=== PATIENT | female | born 1945 | race Two or more races ===

== ENCOUNTER 2022-04-01 06:24 | Day surgery (SDC) | payer OTHER | END 2022-04-01 11:25 | disposition home or self-care (01) | LOC: AMB-ENDOS 06:24 → CIR.AMB 13:45 | PROVIDERS: ATTEND Colon & Rectal Surgery | DX: Z87.19 Personal history of other diseases of the digestive system (principal); R19.5 Other fecal abnormalities; K57.90 Diverticulosis of intestine, part unspecified, without perforation or abscess without bleeding; K64.8 Other hemorrhoids; K60.4 Rectal fistula; K59.00 Constipation, unspecified; E03.9 Hypothyroidism, unspecified; I10 Essential (primary) hypertension; Z91.013 Allergy to seafood ==

== ENCOUNTER 2022-06-08 09:27 | Outpatient (CLI) | payer OTHER | END 2022-06-08 10:15 | disposition home or self-care (01) | LOC: RX STUDY 09:27 | PROVIDERS: ATTEND Colon & Rectal Surgery | DX: N82.3 Fistula of vagina to large intestine (principal) ==

== ENCOUNTER 2023-02-25 11:15 | Inpatient (IN) | payer OTHER ==
[~2023-02-25] VITALS: Ht 152.4 cm; Wt 58.1 kg
[2023-02-25] MEDS ORDERED: SYNTHROID50 MCG PO (15:35)
[2023-02-25] MEDS ORDERED: LOSARTAN POTASS50 MG PO (15:35)
[2023-02-25] MEDS ORDERED: OMEPRAZOLE MAGN20 MG PO (15:36)
[2023-02-25] MEDS ORDERED: ZOCOR20 MG PO (15:36)
[2023-03-02 17:31] LABS: HEMATOCRIT 33.9 % (36.0-45.00); HEMOGLOBIN 11.6 g/dL (12.0-15.00); MEAN CORPUSCULAR HEMOGLOBIN 31.7 pg (27.00-32.0); MEAN CORPUSCULAR HGB CONC 34.1 g/dl (32.0-36.0); PLATELET COUNT 241 K/uL (150-450); RED BLOOD COUNT 3.64 M/uL (4.00-6.00); RED CELL DISTRIBUTION WIDTH 13.6 % (11.5-14.5)
[2023-03-03 08:20] LABS: HEMATOCRIT 30.5 % (36.0-45.00); HEMOGLOBIN 10.8 g/dL (12.0-15.00); MEAN CELL VOLUME 91.9 fL (80.00-100.00); MEAN CORPUSCULAR HEMOGLOBIN 32.5 pg (27.00-32.0); MEAN CORPUSCULAR HGB CONC 35.4 g/dl (32.0-36.0); PLATELET COUNT 183 K/uL (150-450); RED BLOOD COUNT 3.32 M/uL (4.00-6.00)
[2023-03-03 08:38] LABS: ALBUMIN 2.8 gm/dL (3.4-5.0); CALCIUM 8.2 mg/dL (8.5-10.1); CREATININE SERUM 0.49 mg/dL (0.55-1.02); GFR 122.14; MAGNESIUM 2.1 mg/dL (1.8-2.4); PHOSPHOROUS 3.8 mg/dL (2.5-4.9); POTASSIUM 3.29 mEq/L (3.5-5.1)
[2023-03-04 08:38] LABS: HEMATOCRIT 30.9 % (36.0-45.00); HEMOGLOBIN 10.7 g/dL (12.0-15.00); MEAN CELL VOLUME 93.7 fL (80.00-100.00); MEAN CORPUSCULAR HEMOGLOBIN 32.5 pg (27.00-32.0); MEAN CORPUSCULAR HGB CONC 34.7 g/dl (32.0-36.0); PLATELET COUNT 187 K/uL (150-450); RED BLOOD COUNT 3.29 M/uL (4.00-6.00); RED CELL DISTRIBUTION WIDTH 13.9 % (11.5-14.5)
[2023-03-04 08:56] LABS: CALCIUM 8.6 mg/dL (8.5-10.1); CREATININE SERUM 0.84 mg/dL (0.55-1.02); GFR 65.57; PHOSPHOROUS 2.7 mg/dL (2.5-4.9); POTASSIUM 3.36 mEq/L (3.5-5.1)
[2023-03-04] MEDS ORDERED: OMEPRAZOLE20 MG (13:21)
[2023-03-04] MEDS ORDERED: LOSARTAN POTASS25 MG (13:21)
[2023-03-04] MEDS ORDERED: FAMOTIDINE20 MG (13:21)
[2023-03-04] MEDS ORDERED: EZETIMIBE-SIMV1 EAC3 (13:21)
[2023-03-04] MEDS ORDERED: ALENDRONATE SOD70 MG (13:21)
== END 2023-03-05 11:48 | disposition home or self-care (01) | DRG 330 ==
LOC: SURG 03-02 07:00 → O/R 03-02 09:58 → SURH 03-02 09:58 → SURG 03-02 11:15 → SURH 03-02 16:58 → O/R 03-02 16:59 → SURH 03-02 19:16
PROVIDERS: Internal Medicine Geriatric Medicine; ADMIT Colon & Rectal Surgery; ATTEND Colon & Rectal Surgery
PROC: 0DN84ZZ Release Small Intestine, Percutaneous Endoscopic Approach (ICD-10-PCS; 2023-03-02)
PROC: 0JBB0ZZ Excision of Perineum Subcutaneous Tissue and Fascia, Open Approach (ICD-10-PCS; 2023-03-02)
PROC: 3E0F7SF Introduction of Other Gas into Respiratory Tract, Via Natural or Artificial Opening (ICD-10-PCS; 2023-03-02)
PROC: 0DQ84ZZ Repair Small Intestine, Percutaneous Endoscopic Approach (ICD-10-PCS; principal; 2023-03-02 07:00)
DX: N82.3 Fistula of vagina to large intestine (principal); K91.71 Accidental puncture and laceration of a digestive system organ or structure during a digestive system procedure; K92.1 Melena; K66.0 Peritoneal adhesions (postprocedural) (postinfection); D64.89 Other specified anemias; E03.9 Hypothyroidism, unspecified; I10 Essential (primary) hypertension

== ENCOUNTER 2023-03-08 19:28 | Inpatient (IN) | payer OTHER ==
[~2023-03-08] VITALS: Ht 152.4 cm; Wt 0.5 kg
[~2023-03-08 19:28] MED LIST: ALENDRONATE SOD70 MG; EZETIMIBE-SIMV1 EAC3; FAMOTIDINE20 MG; LOSARTAN POTASS25 MG; LOSARTAN POTASS50 MG PO; OMEPRAZOLE MAGN20 MG PO; OMEPRAZOLE20 MG; SYNTHROID50 MCG PO; ZOCOR20 MG PO
[2023-03-08 21:32] LABS: HEMATOCRIT 30.5 % (36.0-45.00); HEMOGLOBIN 10.3 g/dL (12.0-15.00); MEAN CELL VOLUME 92.6 fL (80.00-100.00); MEAN CORPUSCULAR HEMOGLOBIN 31.2 pg (27.00-32.0); MEAN CORPUSCULAR HGB CONC 33.7 g/dl (32.0-36.0); PLATELET COUNT 268 K/uL (150-450); RED BLOOD COUNT 3.29 M/uL (4.00-6.00); RED CELL DISTRIBUTION WIDTH 14.2 % (11.5-14.5)
[2023-03-08 21:58] LABS: PH,URINE 5.5 (5.0-8.0); URINE APPEARANCE Cloudy; URINE BILIRRUBIN Negative (NEGATIVE); URINE BLOOD Moderate; URINE COLOR Dark Yellow; URINE GLUCOSE Negative (NEGATIVE); URINE LEUKOCYTE Moderate; URINE NITRATE Negative
[2023-03-08 22:02] LABS: URINE BACTERIA 653.9 uL (0.0-1933); URINE EPITHELIAL CELLS 34.6 uL (0.0-38.8); URINE RBC 63.5 uL (0.0-20.8); URINE WBC 434.1 uL (0.0-23.2)
[2023-03-08 22:13] LABS: URINE PROTEIN 100 (NEGATIVE)
[2023-03-08 22:21] LABS: BILIRUBIN TOTAL 1.34 mg/dL (0.3-1.2); CALCIUM 8.4 mg/dL (8.5-10.1); CREATININE SERUM 0.71 mg/dL (0.55-1.02); GFR 79.61; GLOBULINA 3.4 G/DL (2.4-3.5); POTASSIUM 3.06 mEq/L (3.5-5.1); TOTAL PROTEIN 5.4 gm/dL (6.4-8.2)
[2023-03-09 15:24] LABS: BLOOD UREA NITROGEN 9 mg/dL (7-18); BUN CREA RATIO 18 (7.0-25.0); CALCIUM 7.4 mg/dL (8.5-10.1); CARBON DIOXIDE 32 mEq/L (21-32); CHLORIDE 99 mmol/L (98-107); CREATININE SERUM 0.51 mg/dL (0.55-1.02); GFR 116.63; GLUCOSE FASTING 99 mg/dL (65-100); OSMOLALITY SERUM 274 MOSM/KG (275-295); SODIUM 138 mmol/L (136-145); TRIGLYCERIDES 77 mg/dL (0-150); VLDL 15 (0-39)
[2023-03-09 15:26] LABS: ANION GAP 9 (10.0-20.0); CHOL HDL RATIO 3.6 (0-5.0); CHOLESTEROL < 50 mg/dL (0-200); HDL 14 mg/dl (40-60); LDL 21 mg/dl (0-130); POTASSIUM 2.49 mEq/L (3.5-5.1)
[2023-03-10 05:32] LABS: ERYTHROCYTE SEDIMENTATION RATE 22 mm/hr
[2023-03-10 05:38] LABS: HEMATOCRIT 32.8 % (36.0-45.00); HEMOGLOBIN 11.1 g/dL (12.0-15.00); MEAN CELL VOLUME 92.9 fL (80.00-100.00); MEAN CORPUSCULAR HEMOGLOBIN 31.6 pg (27.00-32.0); PLATELET COUNT 229 K/uL (150-450); RED BLOOD COUNT 3.53 M/uL (4.00-6.00); RED CELL DISTRIBUTION WIDTH 14.4 % (11.5-14.5)
[2023-03-10 06:58] LABS: ALBUMIN 1.3 gm/dL (3.4-5.0); BILIRUBIN TOTAL 0.79 mg/dL (0.3-1.2); C-REACTIVE PROTEIN 22.2 MG/DL (0.00-0.29); CREATININE SERUM 0.82 mg/dL (0.55-1.02); GFR 67.42; GLOBULINA 2.5 G/DL (2.4-3.5); MAGNESIUM 2.2 mg/dL (1.8-2.4); PHOSPHOROUS 2.8 mg/dL (2.5-4.9); POTASSIUM 3.17 mEq/L (3.5-5.1); TOTAL PROTEIN 3.8 gm/dL (6.4-8.2)
[2023-03-10 11:33] LABS: T4 TOTAL 4.04 UG/DL (4.8-13.9); TSH 0.369 uIU/mL (0.358-3.74)
[2023-03-11 08:29] LABS: HEMATOCRIT 30.6 % (36.0-45.00); HEMOGLOBIN 10.5 g/dL (12.0-15.00); MEAN CELL VOLUME 91.1 fL (80.00-100.00); MEAN CORPUSCULAR HEMOGLOBIN 31.2 pg (27.00-32.0); MEAN CORPUSCULAR HGB CONC 34.2 g/dl (32.0-36.0); PLATELET COUNT 184 K/uL (150-450); RED BLOOD COUNT 3.35 M/uL (4.00-6.00); RED CELL DISTRIBUTION WIDTH 14.4 % (11.5-14.5)
[2023-03-11 08:39] LABS: CALCIUM 7.5 mg/dL (8.5-10.1); CREATININE SERUM 0.61 mg/dL (0.55-1.02); GFR 94.86; MAGNESIUM 2.5 mg/dL (1.8-2.4); PHOSPHOROUS 2.2 mg/dL (2.5-4.9); POTASSIUM 3.14 mEq/L (3.5-5.1)
[2023-03-13 08:04] LABS: ALBUMIN 1.1 gm/dL (3.4-5.0); BILIRUBIN TOTAL 0.44 mg/dL (0.3-1.2); CALCIUM 7.2 mg/dL (8.5-10.1); CREATININE SERUM 0.67 mg/dL (0.55-1.02); GFR 85.12; GLOBULINA 2.9 G/DL (2.4-3.5); MAGNESIUM 2.7 mg/dL (1.8-2.4); PHOSPHOROUS 2.8 mg/dL (2.5-4.9)
[2023-03-13 08:22] LABS: HEMATOCRIT 28.2 % (36.0-45.00); HEMOGLOBIN 9.6 g/dL (12.0-15.00); MEAN CELL VOLUME 91.6 fL (80.00-100.00); MEAN CORPUSCULAR HGB CONC 33.9 g/dl (32.0-36.0); PLATELET COUNT 187 K/uL (150-450); RED BLOOD COUNT 3.08 M/uL (4.00-6.00); RED CELL DISTRIBUTION WIDTH 14.8 % (11.5-14.5)
[2023-03-13 10:01] LABS: C-REACTIVE PROTEIN 18.2 MG/DL (0.00-0.29)
[2023-03-13 10:03] LABS: POTASSIUM 2.96 mEq/L (3.5-5.1)
[2023-03-14 08:20] LABS: CALCIUM 7.7 mg/dL (8.5-10.1); CREATININE SERUM 0.61 mg/dL (0.55-1.02); GFR 94.86; POTASSIUM 3.28 mEq/L (3.5-5.1)
[2023-03-15 06:43] LABS: INR 1.09; PARTIAL THROMBOPLASTIN TIME 26.4 SECONDS (22.0-34.0); PROTHROMBIN TIME 11.4 SECONDS (9.0-11.5)
[2023-03-15 07:23] LABS: ALBUMIN 1.1 gm/dL (3.4-5.0); ALKALINE PHOSPHATASE 52 U/L (50-136); ALT/SGPT 20 U/L (12-78); AST/SGOT 45 U/L (15-37); BILIRUBIN TOTAL 0.39 mg/dL (0.3-1.2); BILIRUBIN,CONJUGATED 0.15 mg/dL (0.0-0.2); BILIRUBIN,UNCONJUGATED 0.24 mg/dL (0.0-0.6); BLOOD UREA NITROGEN 23 mg/dL (7-18); BUN CREA RATIO 42 (7.0-25.0); CARBON DIOXIDE 33 mEq/L (21-32); CHLORIDE 113 mmol/L (98-107); CREATININE SERUM 0.55 mg/dL (0.55-1.02); GLOBULINA 2.8 G/DL (2.4-3.5); GLUCOSE FASTING 108 mg/dL (65-100); HDL 20 mg/dl (40-60); POTASSIUM 3.21 mEq/L (3.5-5.1); TOTAL PROTEIN 3.9 gm/dL (6.4-8.2); TRIGLYCERIDES 62 mg/dL (0-150); VLDL 12 (0-39)
[2023-03-15 07:37] LABS: HEMATOCRIT 25.1 % (36.0-45.00); MEAN CELL VOLUME 92.4 fL (80.00-100.00); MEAN CORPUSCULAR HEMOGLOBIN 31.7 pg (27.00-32.0); MEAN CORPUSCULAR HGB CONC 34.3 g/dl (32.0-36.0); PLATELET COUNT 199 K/uL (150-450); RED BLOOD COUNT 2.71 M/uL (4.00-6.00); RED CELL DISTRIBUTION WIDTH 14.6 % (11.5-14.5)
[2023-03-15 07:40] LABS: HEMOGLOBIN 8.6 g/dL (12.0-15.00)
[2023-03-15 08:14] LABS: ANION GAP 8 (10.0-20.0); CALCIUM 7.2 mg/dL (8.5-10.1); CHOL HDL RATIO 2.5 (0-5.0); CHOLESTEROL < 50 mg/dL (0-200); LDL 18 mg/dl (0-130); OSMOLALITY SERUM 304 MOSM/KG (275-295); SODIUM 151 mmol/L (136-145)
[2023-03-15 10:06] LABS: UREA CLEARANCE 36.1 ML/MIN
[2023-03-16 07:15] LABS: HEMATOCRIT 27.9 % (36.0-45.00); HEMOGLOBIN 9.4 g/dL (12.0-15.00); MEAN CORPUSCULAR HEMOGLOBIN 31.2 pg (27.00-32.0); MEAN CORPUSCULAR HGB CONC 33.5 g/dl (32.0-36.0); PLATELET COUNT 202 K/uL (150-450); RED CELL DISTRIBUTION WIDTH 14.8 % (11.5-14.5)
[2023-03-16 07:49] LABS: CALCIUM 7.5 mg/dL (8.5-10.1); CREATININE SERUM 0.62 mg/dL (0.55-1.02); GFR 93.09; POTASSIUM 3.1 mEq/L (3.5-5.1)
[2023-03-17 08:30] LABS: HEMATOCRIT 25.6 % (36.0-45.00); MEAN CELL VOLUME 93.6 fL (80.00-100.00); MEAN CORPUSCULAR HGB CONC 32.9 g/dl (32.0-36.0); PLATELET COUNT 210 K/uL (150-450); RED BLOOD COUNT 2.74 M/uL (4.00-6.00); RED CELL DISTRIBUTION WIDTH 14.7 % (11.5-14.5)
[2023-03-17 08:51] LABS: ALBUMIN 2.4 gm/dL (3.4-5.0); CALCIUM 7.8 mg/dL (8.5-10.1); CREATININE SERUM 0.74 mg/dL (0.55-1.02); GFR 75.9; PHOSPHOROUS 3.3 mg/dL (2.5-4.9); POTASSIUM 3.09 mEq/L (3.5-5.1)
[2023-03-17 09:15] LABS: HEMOGLOBIN 8.4 g/dL (12.0-15.00); MEAN CORPUSCULAR HEMOGLOBIN 30.6 pg (27.00-32.0)
[2023-03-19 12:16] LABS: HEMATOCRIT 40.4 % (36.0-45.00); HEMOGLOBIN 13.2 g/dL (12.0-15.00); MEAN CELL VOLUME 87.7 fL (80.00-100.00); MEAN CORPUSCULAR HEMOGLOBIN 28.7 pg (27.00-32.0); MEAN CORPUSCULAR HGB CONC 32.7 g/dl (32.0-36.0); PLATELET COUNT 190 K/uL (150-450)
[2023-03-19 13:15] LABS: CALCIUM 7.8 mg/dL (8.5-10.1); CREATININE SERUM 0.66 mg/dL (0.55-1.02); GFR 86.61; MAGNESIUM 2.1 mg/dL (1.8-2.4); PHOSPHOROUS 2.7 mg/dL (2.5-4.9)
[2023-03-19 13:31] LABS: POTASSIUM 2.58 mEq/L (3.5-5.1)
[2023-03-20 10:43] LABS: HEMATOCRIT 38.5 % (36.0-45.00); MEAN CORPUSCULAR HEMOGLOBIN 29.6 pg (27.00-32.0); MEAN CORPUSCULAR HGB CONC 33.7 g/dl (32.0-36.0); PLATELET COUNT 224 K/uL (150-450); RED BLOOD COUNT 4.37 M/uL (4.00-6.00); RED CELL DISTRIBUTION WIDTH 17.8 % (11.5-14.5)
[2023-03-20 10:57] LABS: CALCIUM 7.9 mg/dL (8.5-10.1); CREATININE SERUM 0.68 mg/dL (0.55-1.02); GFR 83.68; MAGNESIUM 2.3 mg/dL (1.8-2.4); PHOSPHOROUS 2.6 mg/dL (2.5-4.9); POTASSIUM 3.03 mEq/L (3.5-5.1)
[2023-03-22 08:00] LABS: HEMATOCRIT 31.3 % (36.0-45.00); HEMOGLOBIN 10.6 g/dL (12.0-15.00); MEAN CELL VOLUME 88.2 fL (80.00-100.00); MEAN CORPUSCULAR HEMOGLOBIN 29.8 pg (27.00-32.0); MEAN CORPUSCULAR HGB CONC 33.8 g/dl (32.0-36.0); PLATELET COUNT 228 K/uL (150-450); RED BLOOD COUNT 3.55 M/uL (4.00-6.00); RED CELL DISTRIBUTION WIDTH 17.4 % (11.5-14.5)
[2023-03-22 08:30] LABS: INR 1.1; PARTIAL THROMBOPLASTIN TIME 31.4 SECONDS (22.0-34.0); PROTHROMBIN TIME 11.5 SECONDS (9.0-11.5)
[2023-03-22 08:43] LABS: ALBUMIN 1.4 gm/dL (3.4-5.0); BILIRUBIN TOTAL 0.63 mg/dL (0.3-1.2); BILIRUBIN,CONJUGATED 0.29 mg/dL (0.0-0.2); BILIRUBIN,UNCONJUGATED 0.34 mg/dL (0.0-0.6); CALCIUM 7.6 mg/dL (8.5-10.1); CREATININE SERUM 0.88 mg/dL (0.55-1.02); GFR 62.14; GLOBULINA 2.4 G/DL (2.4-3.5); MAGNESIUM 2.4 mg/dL (1.8-2.4); POTASSIUM 3.87 mEq/L (3.5-5.1); TOTAL PROTEIN 3.8 gm/dL (6.4-8.2)
[2023-03-22 08:44] LABS: C-REACTIVE PROTEIN 15.3 MG/DL (0.00-0.29)
[2023-03-23 08:41] LABS: T4 TOTAL 3.5 UG/DL (4.8-13.9); TSH 4.3 uIU/mL (0.358-3.74)
[2023-03-24 07:50] LABS: HEMATOCRIT 32.8 % (36.0-45.00); HEMOGLOBIN 10.9 g/dL (12.0-15.00); MEAN CELL VOLUME 88.2 fL (80.00-100.00); MEAN CORPUSCULAR HEMOGLOBIN 29.4 pg (27.00-32.0); MEAN CORPUSCULAR HGB CONC 33.3 g/dl (32.0-36.0); PLATELET COUNT 249 K/uL (150-450); RED BLOOD COUNT 3.72 M/uL (4.00-6.00); RED CELL DISTRIBUTION WIDTH 17.1 % (11.5-14.5)
[2023-03-24 09:50] LABS: ALBUMIN 1.4 gm/dL (3.4-5.0); BILIRUBIN TOTAL 0.42 mg/dL (0.3-1.2); CALCIUM 7.9 mg/dL (8.5-10.1); CREATININE SERUM 0.79 mg/dL (0.55-1.02); GFR 70.38; GLOBULINA 2.7 G/DL (2.4-3.5); MAGNESIUM 2.3 mg/dL (1.8-2.4); PHOSPHOROUS 3.8 mg/dL (2.5-4.9); POTASSIUM 3.13 mEq/L (3.5-5.1); TOTAL PROTEIN 4.1 gm/dL (6.4-8.2)
[2023-03-25 13:54] LABS: ABG PH 7.478 (7.35-7.45); ABG PO2 99.9 mmHg (80-100); ABG pCO2 43.1 mmHg (35-45); BASE EXCESS 6.9 mmol/l; BICARBONATE 31.2 mmol/l (23-25); SaO2 98.3 %; Tco2 32.6 mmol/l
[2023-03-25 13:55] LABS: o2 32 %
[2023-03-25 13:56] LABS: allen test SATISFACTORY; puncture site RADIAL RIGHT
[2023-03-26 07:32] LABS: HEMATOCRIT 31.5 % (36.0-45.00); HEMOGLOBIN 10.6 g/dL (12.0-15.00); MEAN CELL VOLUME 87.8 fL (80.00-100.00); MEAN CORPUSCULAR HEMOGLOBIN 29.5 pg (27.00-32.0); MEAN CORPUSCULAR HGB CONC 33.6 g/dl (32.0-36.0); PLATELET COUNT 230 K/uL (150-450); RED BLOOD COUNT 3.58 M/uL (4.00-6.00); RED CELL DISTRIBUTION WIDTH 16.8 % (11.5-14.5)
[2023-03-26 08:15] LABS: CALCIUM 7.9 mg/dL (8.5-10.1); CREATININE SERUM 0.78 mg/dL (0.55-1.02); GFR 71.43; MAGNESIUM 2.3 mg/dL (1.8-2.4)
[2023-03-26 09:12] LABS: C-REACTIVE PROTEIN 8.04 MG/DL (0.00-0.29)
[2023-03-26 09:13] LABS: POTASSIUM 2.84 mEq/L (3.5-5.1)
[2023-03-28 08:44] LABS: CALCIUM 7.9 mg/dL (8.5-10.1); CREATININE SERUM 0.77 mg/dL (0.55-1.02); GFR 72.5
[2023-03-28 08:51] LABS: HEMATOCRIT 31.3 % (36.0-45.00); HEMOGLOBIN 10.6 g/dL (12.0-15.00); MEAN CORPUSCULAR HEMOGLOBIN 29.7 pg (27.00-32.0); MEAN CORPUSCULAR HGB CONC 33.8 g/dl (32.0-36.0); PLATELET COUNT 203 K/uL (150-450); RED BLOOD COUNT 3.56 M/uL (4.00-6.00); RED CELL DISTRIBUTION WIDTH 16.7 % (11.5-14.5)
[2023-03-28 09:36] LABS: POTASSIUM 2.76 mEq/L (3.5-5.1)
[2023-03-29 06:52] LABS: HEMATOCRIT 31.8 % (36.0-45.00); HEMOGLOBIN 10.8 g/dL (12.0-15.00); MEAN CELL VOLUME 89.2 fL (80.00-100.00); MEAN CORPUSCULAR HEMOGLOBIN 30.2 pg (27.00-32.0); MEAN CORPUSCULAR HGB CONC 33.8 g/dl (32.0-36.0); PLATELET COUNT 185 K/uL (150-450); RED BLOOD COUNT 3.57 M/uL (4.00-6.00); RED CELL DISTRIBUTION WIDTH 16.9 % (11.5-14.5)
[2023-03-29 07:25] LABS: INR 1.1; PARTIAL THROMBOPLASTIN TIME 29.3 SECONDS (22.0-34.0); PROTHROMBIN TIME 11.5 SECONDS (9.0-11.5)
[2023-03-29 07:43] LABS: ALBUMIN 1.4 gm/dL (3.4-5.0); BILIRUBIN TOTAL 0.39 mg/dL (0.3-1.2); BILIRUBIN,CONJUGATED 0.14 mg/dL (0.0-0.2); BILIRUBIN,UNCONJUGATED 0.25 mg/dL (0.0-0.6); CALCIUM 7.9 mg/dL (8.5-10.1); CHOL HDL RATIO 3.1 (0-5.0); CREATININE SERUM 0.87 mg/dL (0.55-1.02); GFR 62.97; GLOBULINA 2.8 G/DL (2.4-3.5); POTASSIUM 3.93 mEq/L (3.5-5.1); TOTAL PROTEIN 4.2 gm/dL (6.4-8.2)
[2023-03-29 11:05] LABS: UREA CLEARANCE 8.4 ML/MIN
[2023-03-30 15:05] LABS: URINE APPEARANCE Clear; URINE BILIRRUBIN Negative (NEGATIVE); URINE BLOOD Small; URINE COLOR Yellow; URINE GLUCOSE Negative (NEGATIVE); URINE LEUKOCYTE Negative; URINE NITRATE Negative; URINE PROTEIN Trace (NEGATIVE); URINE UROBILINOGEN 0.2 E.U./dl
[2023-03-30 15:08] LABS: URINE BACTERIA 20.1 uL (0.0-1933); URINE RBC 37.2 uL (0.0-20.8); URINE WBC 4.4 uL (0.0-23.2)
[2023-03-31 18:56] LABS: URINE APPEARANCE Clear; URINE BILIRRUBIN Negative (NEGATIVE); URINE BLOOD Small; URINE COLOR Yellow; URINE GLUCOSE Negative (NEGATIVE); URINE LEUKOCYTE Negative; URINE NITRATE Negative; URINE PROTEIN Trace (NEGATIVE); URINE UROBILINOGEN 0.2 E.U./dl
[2023-03-31 18:57] LABS: URINE BACTERIA 30.2 uL (0.0-1933); URINE RBC 40.2 uL (0.0-20.8); URINE WBC 5.4 uL (0.0-23.2)
[2023-03-31 19:00] LABS: URINE EPITHELIAL CELLS 1.3 uL (0.0-38.8)
[2023-04-01 06:43] LABS: HEMATOCRIT 30.8 % (36.0-45.00); HEMOGLOBIN 10.5 g/dL (12.0-15.00); MEAN CORPUSCULAR HEMOGLOBIN 29.9 pg (27.00-32.0); PLATELET COUNT 134 K/uL (150-450); RED CELL DISTRIBUTION WIDTH 16.7 % (11.5-14.5)
[2023-04-01 07:14] LABS: ALBUMIN 1.5 gm/dL (3.4-5.0); BILIRUBIN TOTAL 0.47 mg/dL (0.3-1.2); CALCIUM 7.7 mg/dL (8.5-10.1); CREATININE SERUM 0.74 mg/dL (0.55-1.02); GFR 75.9; GLOBULINA 2.7 G/DL (2.4-3.5); PHOSPHOROUS 3.5 mg/dL (2.5-4.9); POTASSIUM 3.69 mEq/L (3.5-5.1); TOTAL PROTEIN 4.2 gm/dL (6.4-8.2)
[2023-04-04 08:44] LABS: HEMATOCRIT 28.3 % (36.0-45.00); HEMOGLOBIN 9.8 g/dL (12.0-15.00); MEAN CORPUSCULAR HEMOGLOBIN 31.2 pg (27.00-32.0); MEAN CORPUSCULAR HGB CONC 34.7 g/dl (32.0-36.0); PLATELET COUNT 149 K/uL (150-450); RED BLOOD COUNT 3.15 M/uL (4.00-6.00); RED CELL DISTRIBUTION WIDTH 17.1 % (11.5-14.5)
[2023-04-04 09:04] LABS: CALCIUM 7.7 mg/dL (8.5-10.1); CREATININE SERUM 0.74 mg/dL (0.55-1.02); GFR 75.9; MAGNESIUM 1.8 mg/dL (1.8-2.4); PHOSPHOROUS 3.2 mg/dL (2.5-4.9); POTASSIUM 3.27 mEq/L (3.5-5.1)
[2023-04-04 09:15] LABS: C-REACTIVE PROTEIN 7.66 MG/DL (0.00-0.29)
[2023-04-05 07:56] LABS: HEMATOCRIT 27.4 % (36.0-45.00); HEMOGLOBIN 9.3 g/dL (12.0-15.00); MEAN CELL VOLUME 90.5 fL (80.00-100.00); MEAN CORPUSCULAR HEMOGLOBIN 30.9 pg (27.00-32.0); MEAN CORPUSCULAR HGB CONC 34.1 g/dl (32.0-36.0); PLATELET COUNT 153 K/uL (150-450); RED BLOOD COUNT 3.03 M/uL (4.00-6.00); RED CELL DISTRIBUTION WIDTH 16.9 % (11.5-14.5)
[2023-04-05 08:24] LABS: INR 1.12; PARTIAL THROMBOPLASTIN TIME 31.3 SECONDS (22.0-34.0); PROTHROMBIN TIME 11.7 SECONDS (9.0-11.5)
[2023-04-05 08:29] LABS: ALBUMIN 1.4 gm/dL (3.4-5.0); BILIRUBIN TOTAL 0.45 mg/dL (0.3-1.2); BILIRUBIN,CONJUGATED 0.13 mg/dL (0.0-0.2); BILIRUBIN,UNCONJUGATED 0.32 mg/dL (0.0-0.6); CALCIUM 7.5 mg/dL (8.5-10.1); CHOL HDL RATIO 4.3 (0-5.0); CREATININE SERUM 0.72 mg/dL (0.55-1.02); GFR 78.34; GLOBULINA 2.7 G/DL (2.4-3.5); MAGNESIUM 1.9 mg/dL (1.8-2.4); POTASSIUM 3.24 mEq/L (3.5-5.1); TOTAL PROTEIN 4.1 gm/dL (6.4-8.2)
[2023-04-05 10:30] LABS: UREA CLEARANCE 19.4 ML/MIN
[2023-04-06 09:39] LABS: ABG PH 7.481 (7.35-7.45); ABG PO2 70.4 mmHg (80-100); ABG pCO2 48.3 mmHg (35-45); BASE EXCESS 10.1 mmol/l
[2023-04-06 09:40] LABS: BICARBONATE 35.2 mmol/l (23-25); Tco2 36.7 mmol/l; allen test SATISFACTORY; o2 21 %; puncture site BRADIAL LEFT
[2023-04-06 09:41] LABS: SaO2 95.6 %
[2023-04-06 13:57] LABS: HEMATOCRIT 38.6 % (36.0-45.00); HEMOGLOBIN 13.3 g/dL (12.0-15.00); MEAN CELL VOLUME 88.2 fL (80.00-100.00); MEAN CORPUSCULAR HEMOGLOBIN 30.5 pg (27.00-32.0); MEAN CORPUSCULAR HGB CONC 34.6 g/dl (32.0-36.0); RED BLOOD COUNT 4.38 M/uL (4.00-6.00); RED CELL DISTRIBUTION WIDTH 16.2 % (11.5-14.5)
[2023-04-06 14:23] LABS: ALBUMIN 1.7 gm/dL (3.4-5.0); CREATININE SERUM 0.63 mg/dL (0.55-1.02); GFR 91.39; PHOSPHOROUS 3.4 mg/dL (2.5-4.9); PLATELET COUNT 155 K/uL (150-450); POTASSIUM 3.09 mEq/L (3.5-5.1)
[2023-04-06 14:25] LABS: CHOL HDL RATIO 4.9 (0-5.0)
[2023-04-07 07:39] LABS: HEMATOCRIT 35.3 % (36.0-45.00); HEMOGLOBIN 12.2 g/dL (12.0-15.00); MEAN CELL VOLUME 89.5 fL (80.00-100.00); MEAN CORPUSCULAR HGB CONC 34.7 g/dl (32.0-36.0); RED BLOOD COUNT 3.94 M/uL (4.00-6.00); RED CELL DISTRIBUTION WIDTH 16.1 % (11.5-14.5)
[2023-04-07 07:41] LABS: PLATELET COUNT 120 K/uL (150-450)
[2023-04-07 08:07] LABS: ALBUMIN 1.4 gm/dL (3.4-5.0); CALCIUM 7.5 mg/dL (8.5-10.1); CREATININE SERUM 0.83 mg/dL (0.55-1.02); GFR 66.48; MAGNESIUM 1.9 mg/dL (1.8-2.4); POTASSIUM 3.73 mEq/L (3.5-5.1)
[2023-04-08 07:36] LABS: HEMATOCRIT 28.2 % (36.0-45.00); HEMOGLOBIN 10.1 g/dL (12.0-15.00); MEAN CELL VOLUME 97.4 fL (80.00-100.00); MEAN CORPUSCULAR HEMOGLOBIN 34.7 pg (27.00-32.0); MEAN CORPUSCULAR HGB CONC 35.7 g/dl (32.0-36.0); RED CELL DISTRIBUTION WIDTH 16.1 % (11.5-14.5)
[2023-04-08 07:37] LABS: PLATELET COUNT 110 K/uL (150-450)
[2023-04-08 07:47] LABS: CALCIUM 7.2 mg/dL (8.5-10.1); CREATININE SERUM 0.69 mg/dL (0.55-1.02); GFR 82.28; MAGNESIUM 2.1 mg/dL (1.8-2.4); PHOSPHOROUS 3.4 mg/dL (2.5-4.9); POTASSIUM 3.47 mEq/L (3.5-5.1)
[2023-04-09 07:49] LABS: CALCIUM 7.2 mg/dL (8.5-10.1); CREATININE SERUM 0.69 mg/dL (0.55-1.02); GFR 82.28; MAGNESIUM 1.7 mg/dL (1.8-2.4); PHOSPHOROUS 2.8 mg/dL (2.5-4.9); POTASSIUM 4.25 mEq/L (3.5-5.1)
[2023-04-09 07:56] LABS: HEMATOCRIT 26.7 % (36.0-45.00); HEMOGLOBIN 9.7 g/dL (12.0-15.00); MEAN CELL VOLUME 100.7 fL (80.00-100.00); MEAN CORPUSCULAR HEMOGLOBIN 36.6 pg (27.00-32.0); MEAN CORPUSCULAR HGB CONC 36.3 g/dl (32.0-36.0); RED BLOOD COUNT 2.65 M/uL (4.00-6.00); RED CELL DISTRIBUTION WIDTH 16.4 % (11.5-14.5)
[2023-04-09 08:06] LABS: PLATELET COUNT 115 K/uL (150-450)
[2023-04-09 09:13] LABS: MANUAL PLATELET COUNT 128
[2023-04-09 16:53] LABS: PH,URINE 5.5 (5.0-8.0); URINE APPEARANCE Cloudy; URINE BILIRRUBIN Negative (NEGATIVE); URINE BLOOD Negative; URINE COLOR Yellow; URINE GLUCOSE Negative (NEGATIVE); URINE LEUKOCYTE Negative; URINE NITRATE Negative; URINE UROBILINOGEN 0.2 E.U./dl
[2023-04-09 16:55] LABS: URINE EPITHELIAL CELLS 31.3 uL (0.0-38.8); URINE RBC 21.5 uL (0.0-20.8)
[2023-04-09 16:56] LABS: URINE PROTEIN 100 (NEGATIVE)
[2023-04-11 09:46] LABS: HEMATOCRIT 23.9 % (36.0-45.00); HEMOGLOBIN 9.1 g/dL (12.0-15.00); MEAN CELL VOLUME 105.4 fL (80.00-100.00); MEAN CORPUSCULAR HEMOGLOBIN 40.1 pg (27.00-32.0); RED BLOOD COUNT 2.26 M/uL (4.00-6.00); RED CELL DISTRIBUTION WIDTH 16.4 % (11.5-14.5)
[2023-04-11 09:49] LABS: PLATELET COUNT 116 K/uL (150-450)
[2023-04-12 09:26] LABS: MEAN CELL VOLUME 102.2 fL (80.00-100.00); MEAN CORPUSCULAR HGB CONC 41.2 g/dl (32.0-36.0); PLATELET COUNT 162 K/uL (150-450); RED BLOOD COUNT 2.07 M/uL (4.00-6.00); RED CELL DISTRIBUTION WIDTH 16.3 % (11.5-14.5)
[2023-04-12 09:27] LABS: HEMATOCRIT 21.2 % (36.0-45.00)
[2023-04-12 09:28] LABS: HEMOGLOBIN 8.7 g/dL (12.0-15.00)
[2023-04-12 09:48] LABS: ALBUMIN 1.2 gm/dL (3.4-5.0); ALKALINE PHOSPHATASE 135 U/L (50-136); ALT/SGPT 6 U/L (12-78); ANION GAP 9 (10.0-20.0); AST/SGOT 19 U/L (15-37); BILIRUBIN TOTAL 0.39 mg/dL (0.3-1.2); BILIRUBIN,CONJUGATED 0.12 mg/dL (0.0-0.2); BILIRUBIN,UNCONJUGATED 0.27 mg/dL (0.0-0.6); BLOOD UREA NITROGEN 31 mg/dL (7-18); BUN CREA RATIO 48 (7.0-25.0); CALCIUM 7.1 mg/dL (8.5-10.1); CARBON DIOXIDE 29 mEq/L (21-32); CHLORIDE 105 mmol/L (98-107); CREATININE SERUM 0.64 mg/dL (0.55-1.02); GFR 89.74; GLOBULINA 2.8 G/DL (2.4-3.5); GLUCOSE FASTING 76 mg/dL (65-100); OSMOLALITY SERUM 283 MOSM/KG (275-295); SODIUM 139 mmol/L (136-145); TRIGLYCERIDES 146 mg/dL (0-150); VLDL 29 (0-39)
[2023-04-12 09:52] LABS: CHOL HDL RATIO 4.5 (0-5.0); LDL 10 mg/dl (0-130)
[2023-04-12 09:53] LABS: CHOLESTEROL < 50 mg/dL (0-200); HDL 11 mg/dl (40-60)
[2023-04-12 09:57] LABS: INR 1.14; PROTHROMBIN TIME 11.9 SECONDS (9.0-11.5)
[2023-04-12 09:58] LABS: PARTIAL THROMBOPLASTIN TIME 38.1 SECONDS (22.0-34.0)
[2023-04-13 11:44] LABS: HEMOGLOBIN 9.1 g/dL (12.0-15.00); MEAN CELL VOLUME 101.8 fL (80.00-100.00); MEAN CORPUSCULAR HEMOGLOBIN 40.8 pg (27.00-32.0); MEAN CORPUSCULAR HGB CONC 40.1 g/dl (32.0-36.0); PLATELET COUNT 188 K/uL (150-450); RED BLOOD COUNT 2.23 M/uL (4.00-6.00); RED CELL DISTRIBUTION WIDTH 16.4 % (11.5-14.5)
[2023-04-13 11:46] LABS: HEMATOCRIT 22.7 % (36.0-45.00)
[2023-04-13 12:22] LABS: CALCIUM 7.6 mg/dL (8.5-10.1); CREATININE SERUM 0.78 mg/dL (0.55-1.02); GFR 71.43; PHOSPHOROUS 3.3 mg/dL (2.5-4.9); POTASSIUM 3.87 mEq/L (3.5-5.1)
[2023-04-13 14:32] LABS: MAGNESIUM 1.9 mg/dL (1.8-2.4)
[2023-04-15 12:39] LABS: HEMATOCRIT 24.5 % (36.0-45.00); MEAN CELL VOLUME 91.1 fL (80.00-100.00); MEAN CORPUSCULAR HEMOGLOBIN 30.4 pg (27.00-32.0); MEAN CORPUSCULAR HGB CONC 33.6 g/dl (32.0-36.0); PLATELET COUNT 173 K/uL (150-450); RED BLOOD COUNT 2.69 M/uL (4.00-6.00)
[2023-04-15 12:40] LABS: HEMOGLOBIN 8.2 g/dL (12.0-15.00)
[2023-04-15 13:12] LABS: CALCIUM 7.5 mg/dL (8.5-10.1); CREATININE SERUM 1.46 mg/dL (0.55-1.02); GFR 34.65; MAGNESIUM 1.8 mg/dL (1.8-2.4); PHOSPHOROUS 4.5 mg/dL (2.5-4.9); POTASSIUM 4.03 mEq/L (3.5-5.1)
[2023-04-16 12:38] LABS: HEMATOCRIT 31.9 % (36.0-45.00); MEAN CELL VOLUME 88.3 fL (80.00-100.00); MEAN CORPUSCULAR HGB CONC 34.7 g/dl (32.0-36.0); PLATELET COUNT 183 K/uL (150-450); RED BLOOD COUNT 3.62 M/uL (4.00-6.00); RED CELL DISTRIBUTION WIDTH 17.3 % (11.5-14.5)
[2023-04-16 12:49] LABS: HEMOGLOBIN 11.1 g/dL (12.0-15.00); MEAN CORPUSCULAR HEMOGLOBIN 30.6 pg (27.00-32.0)
[2023-04-16 13:16] LABS: CALCIUM 7.5 mg/dL (8.5-10.1); CREATININE SERUM 1.56 mg/dL (0.55-1.02); GFR 32.1; MAGNESIUM 1.9 mg/dL (1.8-2.4); PHOSPHOROUS 5.2 mg/dL (2.5-4.9); POTASSIUM 3.94 mEq/L (3.5-5.1)
[2023-04-17 07:16] LABS: CALCIUM 7.4 mg/dL (8.5-10.1); CREATININE SERUM 1.27 mg/dL (0.55-1.02); GFR 40.7; MAGNESIUM 1.9 mg/dL (1.8-2.4); PHOSPHOROUS 5.1 mg/dL (2.5-4.9); POTASSIUM 3.79 mEq/L (3.5-5.1)
[2023-04-17 07:22] LABS: HEMATOCRIT 27.2 % (36.0-45.00); HEMOGLOBIN 10.6 g/dL (12.0-15.00); MEAN CELL VOLUME 97.4 fL (80.00-100.00); MEAN CORPUSCULAR HEMOGLOBIN 37.9 pg (27.00-32.0); MEAN CORPUSCULAR HGB CONC 38.9 g/dl (32.0-36.0); PLATELET COUNT 181 K/uL (150-450); RED CELL DISTRIBUTION WIDTH 17.1 % (11.5-14.5)
[2023-04-20 07:20] LABS: ALBUMIN 1.3 gm/dL (3.4-5.0); BILIRUBIN TOTAL 0.4 mg/dL (0.3-1.2); CALCIUM 7.2 mg/dL (8.5-10.1); CREATININE SERUM 0.65 mg/dL (0.55-1.02); GFR 88.15; GLOBULINA 2.9 G/DL (2.4-3.5); TOTAL PROTEIN 4.2 gm/dL (6.4-8.2)
[2023-04-20 08:07] LABS: C-REACTIVE PROTEIN 2.49 MG/DL (0.00-0.29)
[2023-04-20 08:08] LABS: POTASSIUM 2.8 mEq/L (3.5-5.1)
== END 2023-04-20 16:57 | disposition home or self-care (01) | DRG 856 ==
LOC: ER 19:28 → SURG 22:05 → SURH 22:05 → SURG 03-09 14:41 → SURH 03-11 16:03
PROVIDERS: General Practice; Internal Medicine; Internal Medicine Endocrinology, Diabetes & Metabolism; Internal Medicine Geriatric Medicine; Internal Medicine Infectious Disease; Specialist; Surgery; ADMIT Colon & Rectal Surgery; ATTEND Colon & Rectal Surgery
PROC: BW21ZZZ Computerized Tomography (CT Scan) of Abdomen and Pelvis (ICD-10-PCS; 2023-03-08)
PROC: 0W9F3ZZ Drainage of Abdominal Wall, Percutaneous Approach (ICD-10-PCS; 2023-03-09)
PROC: 5A0935A Assistance with Respiratory Ventilation, Less than 24 Consecutive Hours, High Flow/Velocity Cannula (ICD-10-PCS; 2023-03-16)
PROC: BW21YZZ Computerized Tomography (CT Scan) of Abdomen and Pelvis using Other Contrast (ICD-10-PCS; 2023-03-17)
PROC: BW21YZZ Computerized Tomography (CT Scan) of Abdomen and Pelvis using Other Contrast (ICD-10-PCS; 2023-03-29)
PROC: BW21ZZZ Computerized Tomography (CT Scan) of Abdomen and Pelvis (ICD-10-PCS; 2023-04-05)
PROC: 0DNW0ZZ Release Peritoneum, Open Approach (ICD-10-PCS; 2023-04-06)
PROC: 0W9G0ZZ Drainage of Peritoneal Cavity, Open Approach (ICD-10-PCS; 2023-04-06)
PROC: 0W2FX0Z Change Drainage Device in Abdominal Wall, External Approach (ICD-10-PCS; 2023-04-06)
PROC: 0D1B0Z4 Bypass Ileum to Cutaneous, Open Approach (ICD-10-PCS; principal; 2023-04-06 17:30)
PROC: 02HV33Z Insertion of Infusion Device into Superior Vena Cava, Percutaneous Approach (ICD-10-PCS; 2023-04-08)
PROC: BT4JZZZ Ultrasonography of Kidneys and Bladder (ICD-10-PCS; 2023-04-17)
PROC: 30233N1 Transfusion of Nonautologous Red Blood Cells into Peripheral Vein, Percutaneous Approach (ICD-10-PCS; 2023-04-17)
DX: T81.42XA Infection following a procedure, deep incisional surgical site, initial encounter (principal); K65.1 Peritoneal abscess; K91.81 Other intraoperative complications of digestive system; N13.39 Other hydronephrosis; E87.0 Hyperosmolality and hypernatremia; B96.1 Klebsiella pneumoniae [K. pneumoniae] as the cause of diseases classified elsewhere; B95.2 Enterococcus as the cause of diseases classified elsewhere; B96.89 Other specified bacterial agents as the cause of diseases classified elsewhere; B95.62 Methicillin resistant Staphylococcus aureus infection as the cause of diseases classified elsewhere; E03.8 Other specified hypothyroidism; E78.00 Pure hypercholesterolemia, unspecified; E87.6 Hypokalemia; D64.9 Anemia, unspecified; D72.828 Other elevated white blood cell count; I10 Essential (primary) hypertension

== ENCOUNTER 2023-07-12 07:57 | Outpatient (CLI) | payer OTHER | END 2023-07-12 08:03 | disposition home or self-care (01) | LOC: RX STUDY 07:57 | PROVIDERS: ATTEND Colon & Rectal Surgery | DX: N82.3 Fistula of vagina to large intestine (principal) ==

== ENCOUNTER 2024-11-26 11:48 | Inpatient (IN) | payer OTHER ==
[~2024-11-26] VITALS: Ht 152.4 cm; Wt 68.0 kg
--- NOTE | 2024-11-26 12:10 | NUR ---
PACIENTE ALERTA Y ORIENTADA X 3, [place]COM[place] DE [place]. ESTA REFIERE DAVINA PRESENTO VOMITOS, DOLOR ABDOMINAL Y CORPORAL FUE ATENDIDA [facility] ESTA REFIERE SENTIRSE MEJOR ARMANDO BRAD LE INDICARON QUE TENIA FAIZA HERNIA HIJA LA DIXON PARA VERIFICAR QUE TODO NICHOLE KT.
[2024-11-26] MEDS ORDERED: 0.9 % SODIUM CHLORIDE 1,000 ML IV SCH (14:15)
[2024-11-26 14:22] LABS: BASO % 0.2 % (0.1-1.2); EOS # 0.00 (0.04-0.54); EOS % 0.0 % (0.7-7.0); LYMPH # 3.08 (1.18-3.74); LYMPH % 12.7 % (19.3-53.1); MEAN PLATELET VOLUME 10.00 fl (9.4-12.4); MONO # 1.72 (0.24-0.82); MONO % 7.1 % (4.7-12.5); NEUT # 19.18 (1.56-6.13); NEUT % 79.3 % (34.0-71.1); RED CELL DISTRIBUTION WIDTH 13.2 % (11.6-14.4)
--- NOTE | 2024-11-26 14:23 | NUR ---
SE ORIENTA PTE SOBRE TX A SEGUIR, LA MISMA REFIERE ENTENDER. SE SIDNEY MUESTRA DE LAB, SE CANALIZA Y SE COLOCA IV FLUIDS
[2024-11-26 14:43] LABS: BUN CREA RATIO 23.0 (7.0-25.0); CREATININE SERUM 1.25 mg/dL (0.55-1.02); GFR 41.24; GLUCOSE FASTING 98.0 mg/dL (65-100); OSMOLALITY SERUM 285.0 MOSM/KG (275-295)
[2024-11-26 16:11] LABS: URINE APPEARANCE Turbid; URINE BILIRRUBIN Negative (NEGATIVE); URINE BLOOD Moderate; URINE COLOR Yellow; URINE GLUCOSE Negative (NEGATIVE); URINE KETONE Negative (NEGATIVE); URINE LEUKOCYTE Large; URINE NITRATE Negative; URINE PROTEIN 30 (NEGATIVE); URINE UROBILINOGEN 0.2 E.U./dl
[2024-11-26 16:16] LABS: URINE BACTERIA 778.7 uL (0.0-1933); URINE CAST 1.90 uL (0.0-1.40); URINE EPITHELIAL CELLS 4.9 uL (0.0-38.8); URINE RBC 281.4 uL (0.0-20.8)
[2024-11-26] MEDS ORDERED: METHYLPREDNISOLONE SOD SUCC 125 MG VIAL IV ONE (16:30)
[2024-11-26] MEDS ORDERED: DIPHENHYDRAMINE HCL 50 MG/ML VIAL 1ML IV ONE (16:30)
[2024-11-26] MEDS ORDERED: VANCOMYCIN HCL 1,000 MG VIAL IV ONE (16:30)
[2024-11-26 16:44] LABS: TYPE CELLS SQUAMOUS; URINE MUCUS SCANT; URINE WBC > 5548.3 uL (0.0-23.2)
[2024-11-26] MEDS ORDERED: PANTOPRAZOLE SODIUM 40 MG/VIAL VIAL IV ONE (16:45)
[2024-11-26 17:57] LABS: INR 1.02
[2024-11-26] MEDS ORDERED: AMLODIPINE BESYLATE 5 MG TABLET PO SCH (22:24)
[2024-11-26] MEDS ORDERED: ONDANSETRON HCL 4 MG in 0.9 % SODIUM CHLORIDE 50 ML IV PRN (22:30)
[2024-11-26] MEDS ORDERED: MORPHINE SULFATE 2 MG/ML CARTRIDGE IV PRN (22:30)
[2024-11-26] MEDS ORDERED: RINGERS SOLUTION,LACTATED 1,000 ML IV SCH (22:30)
[2024-11-26 23:07] LABS: ABG PH 7.391 (7.35-7.45); ABG PO2 83.7 mmHg (80-100); BICARBONATE 21.9 mmol/l (23-25); o2 21 %
[2024-11-27 01:33] LABS: INR 1.03
[2024-11-27 05:10] VITALS: BP 131/68; O2SAT 97
[2024-11-27 08:00] VITALS: BP 98/46; O2SAT 98
[2024-11-27 16:00] VITALS: BP 102/57; BP 131/70; O2SAT 96; O2SAT 99
[2024-11-27] MEDS ORDERED: MEROPENEM 500 MG/VIAL VIAL IV SCH (17:00)
[2024-11-27] MEDS ORDERED: ENOXAPARIN SODIUM 40 MG/0.4 ML SYRINGE SUBCUTANEO SCH (17:00)
[2024-11-27] MEDS ORDERED: AA 4.25%/CAL/LYTES/DEXT 5% 1,000 ML PERIFERAL SCH (17:00)
[2024-11-28 00:45] VITALS: BP 100/46; O2SAT 95
[2024-11-28] MEDS ORDERED: PATIENTS OWN MEDICATION (MEDICAMENTO EN PISO) PO SCH (06:00)
[2024-11-28 08:01] LABS: BASO % 0.2 % (0.1-1.2); EOS # 0.06 (0.04-0.54); EOS % 0.3 % (0.7-7.0); LYMPH # 3.97 (1.18-3.74); LYMPH % 22.0 % (19.3-53.1); MEAN PLATELET VOLUME 10.80 fl (9.4-12.4); MONO # 1.47 (0.24-0.82); MONO % 8.2 % (4.7-12.5); NEUT # 12.42 (1.56-6.13); NEUT % 68.9 % (34.0-71.1); RED CELL DISTRIBUTION WIDTH 13.2 % (11.6-14.4)
[2024-11-28 09:03] LABS: ALT/SGPT 24.0 U/L (12-78); AST/SGOT 27.0 U/L (15-37); BILIRUBIN TOTAL 0.6 mg/dL (0.3-1.2); BUN CREA RATIO 27.0 (7.0-25.0); CREATININE SERUM 0.91 mg/dL (0.55-1.02); GFR 59.48; GLOBULINA 2.6 G/DL (2.4-3.5); GLUCOSE FASTING 87.0 mg/dL (65-100); OSMOLALITY SERUM 287.0 MOSM/KG (275-295)
[2024-11-28 09:04] VITALS: BP 115/56; O2SAT 97
[2024-11-28 09:10] LABS: BUN CREA RATIO 27.0 (7.0-25.0); CREATININE SERUM 0.92 mg/dL (0.55-1.02); GFR 58.73; GLUCOSE FASTING 88.0 mg/dL (65-100); OSMOLALITY SERUM 287.0 MOSM/KG (275-295); T4 TOTAL 8.02 UG/DL (4.8-13.9); TSH 0.378 uIU/mL (0.358-3.74)
[2024-11-28] MEDS ORDERED: POTASSIUM CHLORIDE 20MEQ/100ML H2O PB IV NR (10:00)
[2024-11-28] MEDS ORDERED: Cyanocobalamin/Mecobalamin 1 TAB.SL SL NR (10:00)
[2024-11-28] MEDS ORDERED: SOD FERRIC GLUC COMPLX/SUCROSE 62.5 MG in 0.9 % SODIUM CHLORIDE 50 ML IV NR (10:00)
[2024-11-28 16:22] VITALS: BP 127/65; O2SAT 97
[2024-11-28] MEDS ORDERED: POLYETHYLENE GLYCOL 3350 17 GM BLIST.PACK PO SCH (20:33)
[2024-11-29 01:20] VITALS: BP 130/75; O2SAT 96
[2024-11-29 01:21] VITALS: BP 130/75; O2SAT 96
[2024-11-29 08:00] VITALS: BP 155/63; O2SAT 97
[2024-11-29] MEDS ORDERED: Cyanocobalamin/Mecobalamin 1 TAB.SL SL SCH (09:00)
[2024-11-29] MEDS ORDERED: SOD FERRIC GLUC COMPLX/SUCROSE 62.5 MG in 0.9 % SODIUM CHLORIDE 50 ML IV SCH (09:00)
[2024-11-29 17:26] VITALS: BP 121/62; O2SAT 97
[2024-11-30 00:29] VITALS: BP 109/70; O2SAT 98
[2024-11-30 06:19] LABS: BASO % 0.4 % (0.1-1.2); EOS # 0.28 (0.04-0.54); EOS % 2.8 % (0.7-7.0); LYMPH # 2.72 (1.18-3.74); LYMPH % 27.2 % (19.3-53.1); MEAN PLATELET VOLUME 11.00 fl (9.4-12.4); MONO # 1.05 (0.24-0.82); MONO % 10.5 % (4.7-12.5); NEUT # 5.89 (1.56-6.13); NEUT % 58.8 % (34.0-71.1); RED CELL DISTRIBUTION WIDTH 12.6 % (11.6-14.4)
[2024-11-30 06:44] LABS: BUN CREA RATIO 34.0 (7.0-25.0); CREATININE SERUM 0.7 mg/dL (0.55-1.02); GFR 80.51; GLUCOSE FASTING 92.0 mg/dL (65-100); OSMOLALITY SERUM 287.0 MOSM/KG (275-295)
[2024-11-30 08:00] VITALS: BP 129/73; O2SAT 98
[2024-11-30 16:37] VITALS: BP 120/60; O2SAT 97
[2024-12-01] VITALS: BP 121/65; O2SAT 96
[2024-12-01 08:30] VITALS: BP 119/64
== END 2024-12-01 11:06 | disposition home or self-care (01) | DRG 389 ==
LOC: ER 11:59 → SURH 22:28
PROVIDERS: Emergency Medicine; General Practice; Internal Medicine Geriatric Medicine; Internal Medicine Infectious Disease; ADMIT Colon & Rectal Surgery; ATTEND Colon & Rectal Surgery
PROC: BW21YZZ Computerized Tomography (CT Scan) of Abdomen and Pelvis using Other Contrast (ICD-10-PCS; principal; 2024-11-26)
DX: K56.609 Unspecified intestinal obstruction, unspecified as to partial versus complete obstruction (principal); K46.0 Unspecified abdominal hernia with obstruction, without gangrene; N39.0 Urinary tract infection, site not specified; D72.829 Elevated white blood cell count, unspecified; D64.9 Anemia, unspecified; I10 Essential (primary) hypertension; E03.9 Hypothyroidism, unspecified